=== PATIENT | female | born 1980 | race Caucasian/White ===

== ENCOUNTER 2016-11-23 17:45 | Inpatient (IN) | payer OTHER ==
[~2016-11-23] VITALS: Ht 165.1 cm; Wt 75.1 kg
[2016-11-23 17:47] VITALS: BP 116/83; PULSE 87; RESP 10; O2SAT 100
--- NOTE | 2016-11-23 18:00 | ED.REPORT ---
HPI-Neurologic Deficit Date of Service Nov 23, 2016 ED Provider: Dr. David Pt is a healthy 36 year old female who presents to the ED with concerns for dysarthria and slurred speech that started around 13:40 this afternoon. Pt reports that she hit her head on a cabinet while sitting down, 7 days ago. She was seen by her doctor and diagnosed with a mild concussion. She reports mild headaches and confusion since then. Suddenly today, after she had taken a nap, she found that she was having a difficult time "finding words". She describes this as knowing what she wants to say, but not knowing how to articulate it. Her friend reports that her speech is not currently at her baseline. Pt reports no significant past medical history, no chance of or any other complaints. Nursing Notes Stated Complaint: SLURRED WORDS Chief Complaint: Neuro Symptoms/ Deficits Nursing Notes Reviewed: Yes Allergies: Coded Allergies: No Known Allergies (Unverified , 11/23/16) General Time Seen by Provider: 17:56 Chief Complaint Slurred speech Hx Obtained From: Patient Arrived By: Walk-in Sudden in Onset?: Yes Onset Occurred: 1 - 4 hours ago Symptom Duration: Since onset Progression Since Onset: Unchanged Severity: Current: No pain currently Severity: Maximum: No pain Similar Sx Previous: Yes Risk Factors TPA Administration/Criteria Stroke Thrombolytic Therapy : TPA Considered: Yes Neurologist Contacted: Yes Disc Risk/Benefit/Alternatives: Yes TPA Administered Intravenously: No, exclusion criteria NIH Stroke Scale Level of Consciousness: Alert and responsive (0) Ask Month & Age: Both questions right (0) Open/Close Eyes/Hand Stapler Machine: Performs both tasks (0) Horizontal EO Movements: None (0) Visual Pierce: Partial hemianopsia (1) Facial Palsy: Normal symmetry (0) Right Arm Motor Drift (10s): No drift 10 sec (0) Left Arm Motor Drift (10s): No drift 10 sec (0) Right Leg Motor Drift (5s): No drift 5 sec (0) Left Leg Motor Drift (5s): No drift 5 sec (0) Limb Ataxia FNF/Heel-Jackson: No ataxia (0) Sensation (Arms/Legs/Face): No sensory loss (0) Language Aphasia: No aphasia, normal (0) Dysarthria: Slurring intelligible (1) Extinction/Inattention: No exctinct/inattent (0) NIHSS Score: 2 Time NIHSS Performed: 18:17 Date NIHSS Performed: Nov 23, 2016 Past Medical History Past Medical History None reported Ambulatory Status Independent Review of Systems Constitutional: Denies: Chills, Fever, Malaise, Weakness - generalized Respiratory: Denies: Non-productive cough, Shortness of breath, Wheezing Cardiovascular: Denies: Chest pain GI: Denies: Abdominal pain, Constipation, Diarrhea, Nausea, Vomiting Musculoskeletal: Denies: Extremity pain, Myalgia, Neck pain Neurologic: Reports: Slurred speech, Denies: Abnormal movement, Change LOC, Confusion, Dizziness, Headache, Syncope, Weakness Complete sys rev & neg: except as marked. Physical Exam Initial Vital Signs Vital Signs (First) Date Time Temp Pulse Resp B/P Pulse Ox O2 Delivery O2 Flow Rate FiO2 11/23/16 17:47 36.8 87 10 116/83 100 11/23/16 18:08 Room Air Initial VS: Reviewed ENT: Mucous membranes moist, Conjunctiva normal, No scleral icterus Neck: Supple, Non-tender, Full range of motion Abdomen / GI: Soft, Non-tender, No guarding, No rebound, No distention Skin: Warm, Dry, No cyanosis Psychiatric: Mood/affect normal, Behavior normal, Normal thought content General/Constitutional: Awake, Alert, Well appearing, Well developed, Well nourished, Cooperative Head / Eyes: Atraumatic, Normocephalic, PERRL, EOMI Respiratory / Chest: Atraumatic, Breath sounds NL, Breath sounds = bilat, No respiratory distress Cardiovascular: Heart rate NL, Regular rhythm, Heart sounds NL, No gallop, No murmurs, No rubs Neurologic: Oriented X3, No motor deficits, No sensory deficits, CN II - XII intact Broken speach NIH score 2 - see risk section for details Interpretation & Diagnostics Lab Results Interpretation Result Diagram: 11/23/16 1803 11/23/16 1803 Test 11/23/16 18:03 11/23/16 18:26 11/23/16 19:25 White Blood Count 5.4th/mm3 (3.8-10.1) Red Blood Count 4.94mil/mm3 (3.90-5.20) Hemoglobin 11.8g/dL (12.0-15.6) Hematocrit 37.5% (35.0-46.0) Mean Corpuscular Volume 75.9fL (81-100) Mean Corpuscular Hemoglobin 23.9pg (27.0-35.0) Mean Corpuscular Hemoglobin Concent 31.5% (32.0-37.0) Red Cell Distribution Width 15.5% (12.3-15.4) Platelet Count 292bil/L (150-400) Neutrophils (%) (Auto) 45.8% (40-74) Lymphocytes (%) (Auto) 43.3% (14-46) Monocytes (%) (Auto) 8.7% (4-12) Eosinophils (%) (Auto) 1.8% (0-5) Basophils (%) (Auto) 0.4% (0-3) Sodium Level 143mEq/L (134-144) Potassium Level 3.5mEq/L (3.5-5.2) Chloride Level 106mEq/L (97-108) Carbon Dioxide Level 18mmol/L (18-29) Blood Urea Nitrogen 14mg/dL (6-20) Creatinine 0.77mg/dL (0.57-1.00) Estimat Glomerular Filtration Rate 123mL/min (>59) Glucose Level 100mg/dL (60-99) Calcium Level 9.6mg/dL (8.5-10.1) Total Bilirubin 0.2mg/dL (0.0-1.2) Aspartate Amino Transf (AST/SGOT) 17U/L (0-50) Alanine Aminotransferase (ALT/SGPT) 13U/L (0-32) Alkaline Phosphatase 102U/L (25-150) Troponin T < 0.010ug/L (0.0-0.011) Total Protein 7.1g/dL (6.4-8.4) Albumin 4.5g/dL (3.4-5.0) Human Chorionic Gonadotropin, Qual Negative (Negative) Prothrombin Time 12.0sec (8.1-12.5) Prothromb Time International Ratio 1.12ratio Activated Partial Thromboplast Time 28.5sec (22.8-33.0) Hold Williamson Top Tube Received (Received) Urine Color Yellow (YELLOW) Urine Appearance Clear (CLEAR,HAZY) Urine pH 7.5 (5.0-8.0) Urine Specific [place] 1.010 (1.003-1.035) Urine Protein Negativemg/dL (NEG,TRACE) Urine Glucose (UA) Negativemg/dL (NEGATIVE) Urine Ketones Negativemg/dL (NEGATIVE) Urine Occult Blood Negative (NEGATIVE) Urine Nitrite Negative (NEGATIVE) Urine Bilirubin Negative (NEGATIVE) Urine Urobilinogen Normalmg/dL (NORMAL) Urine Leukocyte Esterase Small (NEGATIVE) Urine RBC 0-2/hpf (0-2) Urine WBC 0-5/hpf (0-5) Urine Epithelial Cells Moderate/hpf (NONE-MOD) Urine Crystals None seen (NONE SEEN) Urine Bacteria Many/hpf (NONE-FEW) Urine Hyaline Casts None/lpf (NONE) Urine Granular Casts None seen (NONE SEEN) Urine Waxy Casts None seen (NONE SEEN) Urine Red Blood Cell Casts None seen (NONE SEEN) Urine White Blood Cell Casts None seen (NONE SEEN) Urine Mucus None seen (None Seen) Urine Trichomonas None seen (NONE SEEN) Urine Yeast None (NONE SEEN) Urinalysis Comment None Urine Culture Reflexed Indicated Lab Results Interpretation: Head and Neck Angio: IMPRESSION: Normal head and neck angiogram. Dictated by: Larissa Kimbrough M.D. on 11/23/2016 at 21:10 ECG Interpretation ECG Interpretation: SR - 63 Time: 19:14 Interpreted by: ED physician Normal ECG Interpretation: Normal axis, Normal intervals CT Head Interpretation IMPRESSION: No acute intracranial abnormality. This study fulfills neurological imaging criteria for inclusion or exclusion of acute stroke therapies based on available published neurological imaging guidelines. Dictated by: Larissa Kimbrough M.D. on 11/23/2016 at 18:10 Interpretation / Wet Read by: Interpret - Radiologist Re-Eval/Medical Decision Med Decision/Clinical Course 36-year-old female with acute onset of dysarthria today approximately 4 hours prior to arrival. The time imaging is completed, the patient is outside of the extended window for TPA administration. She has a low stroke scale however dysarthria is concerning. She she has not abnormality with extraocular movements which has been present for about 7 days. She reports a recent concussion immediately prior to that however her mechanism is not impressive. She does have a headache today however it is not explosive in nature and is not severe and she did not have oral or documented history of migraines. Imaging for stroke including CT brain without contrast as well as CT angiogram of head and neck are unremarkable. Her dysarthria has improved but not resolved. This may represent an acute stroke, other mechanisms including complex migraine and demyelinating assess such as multiple sclerosis are considered. She has no motor deficit and I do not believe that this is Guillain-Harvey or myasthenia. She will be admitted to the hospitalist service with neurology consult in and will need an MR in the morning. Was given aspirin in the emergency department. Source of Hx: Old records Re-Evaluation/Progress #1: Time of Eval: 18:17 Re-Evaluation/Progress Note: Pt is rechecked. She remains stable. Risk factors for TPA are addressed. Re-Evaluation/Progress #2: Time of Eval: 18:38 Re-Evaluation/Progress Note: Pt is reported of the consultation with the Stroke neurologist and the plan to obtain additional imaging at this time. She understands and agrees, all questions are addressed. Re-Evaluation/Progress #3: Time of Eval: 20:15 Re-Evaluation/Progress Note: Pt is rechecked and informed of the plan to admit her to the hospital at this time. She understands and agrees, all questions are addressed. Consultation #1: Call Returned at: 18:36 Note: Spoke with Stroke Neurologist who suggests against TPA administration. Consultation #2: Referral / Consult Name: Felix Roy MD Consulted With: Neurology Call Returned at: 20:22 Note Teller: Will see patient, Agrees with eval, Agrees with plan Note: Agrees to consult Consultation #3: Referral / Consult Name: Patricia Engel DO Call Returned at: 21:43 Note Teller: Will see patient, Agrees with plan, Accepts admit Counseled Regarding: Diagnosis, Lab results, Need for admission Discharge & Departure Impression: Primary Impression: Stroke CVA mechanism: unspecified Qualified Code: I63.9 - Cerebral infarction, unspecified Disposition: ADMITTED TO HOSPITAL Discharge Condition All VS Reviewed: Yes Condition: Stable Crit Care Except Billable Proc Time Spent: 75-104 minutes Services Performed: Patient management by me, Time spent at bedside, Reviewing test results, Reviewing imaging, Discussing patient care, Documentation in record, Time with fam/surrogate Scribe Attestation Portions of this note were transcribed by Chinyere Lamas. I, Dr. David personally performed the history, physical exam and medical decision-making; I reviewed and confirmed the accuracy of the information in the transcribed note. Signed by: Janes Mclean, 11/23/2016 21:48 Ambrocio David MD Nov 23, 2016 18:00 SHAD LAMAS Nov 23, 2016 18:05
[2016-11-23 18:06] LABS: BASOPHILS % (AUTO) 0.4 % (0-3); EOSINOPHILS % (AUTO) 1.8 % (0-5); MONOCYTES % (AUTO) 8.7 % (4-12); Mean Corpuscular Hemoglobin 23.9 pg (27.0-35.0); Mean Corpuscular Volume 75.9 fL (81-100); NEUTROPHILS % (AUTO) 45.8 % (40-74); Platelet Count 292 bil/L (150-400)
[2016-11-23 18:08] VITALS: BP 96/55; PULSE 61; RESP 17; O2SAT 100
--- NOTE | 2016-11-23 18:13 | DRSVH ---
PROCEDURE: CT BRAIN (TPA) ([id number]) INDICATIONS: SLURRED SPEECH TECHNIQUE: Noncontrast 4.5 mm thick angled axial sections acquired from the foramen magnum to the vertex, with c oronal reformats. COMPARISON: None. FINDINGS: Image quality: Excellent. CSF spaces: Basal cisterns are patent. No extra-axial fluid collections. Ventricles are normal in size and shape. Brain: No midline shift. No intracranial masses or hemorrhage. Plata-white matter interface is norm al. Skull and face: Calvarium and visualized facial bones are intact, without suspicious lesions. Sinuses: Visualized sinuses and mastoids are clear. IMPRESSION: No acute intracranial abnormality. This study fulfills neurological imaging criteria for inclusion or exclusion of acute stroke therapie s based on available published neurological imaging guidelines. Dictated by: Larissa Kimbrough M.D. on 11/23/2016 at 18:10 Approved by: Larissa Kimbrough M.D. on 11/23/2016 at 18:12
[2016-11-23 18:33] LABS: TROPONIN T < 0.010 ug/L (0.0-0.011)
[2016-11-23] MEDS ORDERED: Acetaminophen IV 1,000 MG in IV Premix 1 EACH IV ONE (18:45)
[2016-11-23 18:54] LABS: INR 1.12 ratio
[2016-11-23 20:02] LABS: APPEARANCE,URINE CLEAR (CLEAR,HAZY); COLOR,URINE YELLOW (YELLOW); OCCULT BLOOD,URINE NEGATIVE (NEGATIVE); PH,URINE 7.5 (5.0-8.0); UROBILINOGEN,URINE NORMAL (NORMAL)
--- NOTE | 2016-11-23 21:16 | DRSVH ---
PROCEDURE: CT ANGIO HEAD AND NECK (P) INDICATIONS: dysarthria TECHNIQUE: Pre-contrast 4.5 mm thick sections acquired from the foramen magnum to the vertex. After the adminis tration of intravenous contrast, 1 mm thick sections acquired from the aortic arch through the [place] of [place]. Post-contrast 4.5 mm thick sections then re-acquired from the foramen magnum to the vert ex. 3-dimensional gtctsyh-nygivkhzb-jfxgsuhadn (MIP) and/or volume rendering reformats were acquired of the central intracranial vasculature and neck separately. For radiation dose reduction, the foll owing was used: automated exposure control, adjustment of mA and/or kV according to patient size. COMPARISON: [facility], CT, BRAIN ([facility]), 11/23/2016, 18:05. FINDINGS: Image quality: Excellent. BRAIN: CSF spaces: Ventricles are normal in size and shape. Basal cisterns are patent. No extra-axial flu id collections. Brain: No midline shift. No intracranial bleeds or masses. Plata-white matter interface appears int act. Skull and face: Calvarium and facial bones appear intact, without suspicious lesions. Orbits appear normal. Sinuses: Sinuses and mastoids are clear. HEAD CT ANGIOGRAPHY: Anterior circulation: Intracranial internal carotid arteries are normal in size and flow. The flow within the paired anterior cerebral arteries is normal and symmetric. The flow within the middle cer ebral arteries is normal and symmetric. The anterior communicating artery is seen. No aneurysms are seen. Posterior circulation: Visualized portions of the vertebral arteries demonstrate normal caliber, and join to form a normal appearing basilar artery. Flow within the posterior cerebral arteries is norm al and symmetric. No aneurysms are seen. NECK CT ANGIOGRAPHY: Carotid system: The great vessels demonstrate a conventional anatomy as they arise from the aortic a rch. The origins of the common carotid arteries appear patent. The common carotid arteries demonstr ate normal caliber and courses. The bifurcation regions are both widely patent. The internal caroti d arteries demonstrate normal calibers and courses. Posterior circulation: The origins of the vertebral arteries both appear widely patent. The more arita perior extracranial portions of both vertebral arteries also demonstrate normal courses and calibers. They join to form a normal appearing basilar artery. Soft tissues: Visualized neck soft tissues demonstrate no suspicious abnormalities. Bones: No suspicious bony lesions. Visualized cervical spine appears normally aligned. IMPRESSION: Normal head and neck angiogram. Dictated by: Larissa Kimbrough M.D. on 11/23/2016 at 21:10 Approved by: Larissa Kimbrough M.D. on 11/23/2016 at 21:14
[2016-11-23] MEDS ORDERED: Polyethylene Glycol (PEG) 17 Gm Powder PO PRN (21:50)
[2016-11-23] MEDS ORDERED: Alum-Mag Hydrox-Simeth 30 mL Suspension PO PRN (21:50)
[2016-11-23] MEDS ORDERED: Ondansetron 2 mg/mL 2 mL Inj IV PRN (21:50)
[2016-11-23 22:42] VITALS: BP 108/68; PULSE 62; RESP 16; O2SAT 100
[2016-11-23 23:00] VITALS: PULSE 60
[2016-11-24] VITALS (8 sets, daily range): BP systolic 90–110; BP diastolic 58–67; PULSE 65–78; RESP 16–18; O2SAT 99–100
--- NOTE | 2016-11-24 00:46 | PCM.HPMED ---
Subjective Date of Service Nov 23, 2016 Primary Provider: Admitting Physician: Patricia Engel DO Primary Care Physician: Patricia Adler Attending Physician: Patricia Engel DO Admit Status: From the Emergency Department, Full Admit Chief Complaint: Slurred speech. . History of Present Illness: Nydia Mcconnell is a 36-year-old female who presents to [facility] Emergency Department with concerns slurred speech that started around 13:40 this afternoon. She reports that she hit her head approximately 7 days ago on a bathroom cabinet while going to the bathroom. She was then diagnosed with mild concussion at her PCPs office. Since she hit her head she has had persistent left-sided headache, starting in the frontal region and radiating in a Danay horn distribution. She reports mild headaches approximately 6-8 times a day. She has no history of chronic headaches. She reports that she had had as a child but did not have concussive-like symptoms. She also endorses confusion , memory loss, and issues with recalling information. She occasionally has right-sided headaches as well. She reports that today she awoke with a headache and dizziness. She did some computer work, watched TV, and showered then decided to take a nap as her headache and dizziness was unremitting. She reports that when she awoke she suddenly had issues with speaking. She reports her words were slurred and she was having difficulty with word finding. She describes this as knowing what she wants to say but not knowing how to articulate it. Per the ED physician's report, her friend reports that her speech is not currently at her baseline. She denies diplopia or blurred vision , nasal congestion, sore throat, chest pain, shortness of breath, vomiting, fever, chills, dysuria, diarrhea, constipation, or weakness. However, she does report that she has to concentrate to walk at times. Vital signs in the ER: Temperature 36.8. Pulse 87. Respiratory rate 17. Blood pressure 116/83. Pulse ox 100% on room air. She was given aspirin 81 mg and acetaminophen 1 g IV 1. PCP is Patricia MAURER . Review of Systems: A comprehensive review of systems was conducted with the patient and found to be negative except as above in the History of Present Illness. . Allergies Coded Allergies: No Known Allergies (Unverified , 11/23/16) Home Medications Digestion oil? . PMH 1. Anxiety. 2. Carpal tunnel. 3. GERD. . Surgical History 1. Left carpal tunnel release 2. 2. Left ulnar nerve transposition. 3. D&C. 4. . 5. Colposcopy. . Family History Father who from drunk driving/MVA. Mother who is an alcoholic and has had a seizure in the past for which she believes was related to alcohol use. Three brothers, 2 of which are healthy and the oldest with prostate cancer which metastasized to the lung and is in remission after lobectomy. . 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 She recently moved to [place] from [place]. . Exam Vital Signs Vital Sign - Last Date Time Temp Pulse Resp B/P Pulse Ox O2 Delivery O2 Flow Rate FiO2 11/23/16 18:08 61 17 96/55 100 Room Air 11/23/16 17:47 36.8 Exam General: Young female sitting in bed and in no acute distress, well-developed, well-nourished, appropriately interactive. HEENT: Normocephalic, atraumatic. External ears without defect. Pupils equal, round, and reactive to light. Anicteric sclerae, moist conjunctivae, and no lid lag. Oropharynx free of erythema and cobble stoning with moist mucosa. Neck: Supple with full range of motion. No jugular venous distension. No bruits. No lymphadenopathy or thyromegaly. Cardiovascular: Regular rate and rhythm without murmurs, rubs, or gallops. Pulmonary: Clear to auscultation bilaterally with no crackles, wheezes, or rhonchi. Normal respiratory effort with no use of accessory muscles. Abdomen: Soft, nontender, nondistended, bowel sounds present. No hepatosplenomegaly or masses appreciated. Extremities: No clubbing, cyanosis, or edema. No erythema, warmth, or palpable cord of the lower extremities. Skin: Normal temperature, turgor, and texture; no rash, ulcers, or subcutaneous nodules appreciated. Neurological: Partial hemianopsia on left. NIH scale 2. Possible disconjugate gaze with vergence? Otherwise CN II-XII intact. Sensation intact. Motor function intact. Normal muscle strength, tone, and bulk. Reflexes, coordination, and sensory function within normal limits. No gait impairment. Psychiatric: Normal mood and affect. Alert and oriented to person, place, and time. . Lab and Diagnostics Labs Item Value Date Time Urine Color Yellow 11/23/161924 Urine Appearance Clear 11/23/161924 Urine pH 7.5 11/23/161924 Urine Specific [place] 1.010 11/23/161924 Urine Protein Negative mg/dL 11/23/161924 Urine Glucose (UA) Negative mg/dL 11/23/161924 Urine Ketones Negative mg/dL 11/23/161924 Urine Occult Blood Negative 11/23/161924 Urine Nitrite Negative 11/23/161924 Urine Bilirubin Negative 11/23/161924 Urine Urobilinogen Normal mg/dL 11/23/161924 Urine Leukocyte Esterase Small 11/23/161924 Urine RBC 0-2 /hpf 11/23/161924 Urine WBC 0-5 /hpf 11/23/161924 Urine Epithelial Cells Moderate /hpf 11/23/161924 Urine Crystals None seen 11/23/161924 Urine Bacteria Many /hpf 11/23/161924 Urine Hyaline Casts None /lpf 11/23/161924 Urine Granular Casts None seen 11/23/161924 Urine Waxy Casts None seen 11/23/161924 Urine Red Blood Cell Casts None seen 11/23/161924 Urine White Blood Cell Casts None seen 11/23/161924 Urine Mucus None seen 11/23/161924 Urine Trichomonas None seen 11/23/161924 Urine Yeast None 11/23/161924 Urinalysis Comment None 11/23/161924 Urine Culture Reflexed Indicated 11/23/161924 Item Value Date Time Calcium Level 9.6 mg/dL 11/23/161802 Total Bilirubin 0.2 mg/dL 11/23/161802 Aspartate Amino Transf (AST/SGOT) 17 U/L 11/23/161802 Alanine Aminotransferase (ALT/SGPT) 13 U/L 11/23/16 180 Alkaline Phosphatase 102 U/L 11/23/161802 Troponin T < 0.010 ug/L 11/23/161802 Total Protein 7.1 g/dL 11/23/161802 Albumin 4.5 g/dL 11/23/161802 Result Diagram: 11/23/16 18011/23/161802 Microbiology Urine culture pending. . X-Rays, CTs and MRIs CT BRAIN (TPA) IMPRESSION: No acute intracranial abnormality. This study fulfills neurological imaging criteria for inclusion or exclusion of acute stroke therapies based on available published neurological imaging guidelines. Dictated by: Larissa Kimbrough M.D. on 11/23/2016 at 18:10 Approved by: Larissa Kimbrough M.D. on 11/23/2016 at 18:12 CT ANGIO HEAD AND NECK (P) IMPRESSION: Normal head and neck angiogram. Dictated by: Larissa Kimbrough M.D. on 11/23/2016 at 21:10 Approved by: Larissa Kimbrough M.D. on 11/23/2016 at 21:14 . 12-lead ECG EKG: Sinus rhythm, heart rate 63, normal axis, normal intervals, normal R-wave progression, no pathological Q waves or acute ischemic changes such as ST elevation or depression. . Assessment & Plan Nydia Mcconnell is a 36-year-old female who presents to [facility] Emergency Department with concerns slurred speech that started around 13:40 this afternoon. 1. Slurred speech with difficulty word finding, present on admission. Active. - The patient presents after enduring a mild concussion 7 days ago now with abrupt onset slurred speech (improving), trouble with word finding, and intermittent mild left-sided frontal headache. - Differential diagnosis includes: Postconcussive syndrome versus TIA versus complex migraine versus less likely substance intoxication. - NIHSS score of 2 based on left partial hemianopsia and slurred speech. - CT brain without contrast and CTA of the neck revealed no intracranial abnormalities and normal head and neck angiogram, as above. - Ordered echocardiogram with bubble study. - Ordered MRI stroke protocol for tomorrow morning. Note dental implant with possible metal - Urinalysis is likely contaminant as there are moderate amount of epithelial cells. Urine culture pending. - Patient received aspirin 81 mg. Continue aspirin 81 mg daily. - Started atorvastatin 40 mg daily at bedtime. - Ordered fasting lipid panel and hemoglobin A1c with morning labs. - Ordered blood alcohol level and urine drug screen, pending. - Continue to monitor vital signs and cardiac function on telemetry. - Continue neuro checks per stroke protocol. - Physical therapy, speech therapy and occupational therapy evaluations ordered. - Neurology, Dr. Roy, has been consulted and plans to see the patient tomorrow morning. 2. Mild microcytic anemia, unknown chronicity, present on admission. - Ordered iron panel, B12, and folate with morning labs. Chronic problems: GERD, chronic. - Ordered famotidine 20 mg twice a day. PRN antiemetics: Zofran and Maalox. PRN bowel regimen: Senna and MiraLAX. PRN analgesics: Tylenol Patient is admitted under inpatient status with expected length of stay greater than 2 midnights due to severity of presenting symptoms, risk of adverse event, and complexity of treatment plan. VTE Prophylaxis: Sub-Q Heparin (Unfractionated) Resuscitation Status: CPR: Attempt Resuscitation Attending Statement The patient was seen and examined together with house staff on 11/23/2016 and I agree with the history, exam and plan as outlined in the note above. Tonya Mckoy DO Nov 23, 2016 22:49 Patricia Engel DO Nov 24, 2016 03:41
--- NOTE | 2016-11-24 03:23 | NUR ---
Admission Pt arrived to room 3027 alert and oriented x3, no significant complaints of pain, just minor head ache. Pt was oriented to room, call light, bed and policies. Pt has no significant neurological deficits notable at this time. Minor nystagmus when eyes accommodate to close objects and Pts speech is back to normal per Pt.
[2016-11-24 07:27] LABS: BASOPHILS % (AUTO) 0.4 % (0-3); EOSINOPHILS % (AUTO) 1.8 % (0-5); MONOCYTES % (AUTO) 7.8 % (4-12); Mean Corpuscular Hemoglobin 23.8 pg (27.0-35.0); Mean Corpuscular Volume 76.7 fL (81-100); NEUTROPHILS % (AUTO) 55.1 % (40-74); Platelet Count 252 bil/L (150-400)
[2016-11-24 07:42] LABS: Unsaturated Iron Binding 361.9 ug/dL
[2016-11-24] MEDS ORDERED: LORA10CA PO (09:24)
[2016-11-24] MEDS ORDERED: doterra (09:24)
[2016-11-24] MEDS ORDERED: OMEP10CA4 PO (09:24)
--- NOTE | 2016-11-24 09:35 | NUR ---
Evaluation completed. Please go to "Notes" then click on "Assessments and Notes" (bottom left corner of screen). Then select appropriate discipline tab on top of screen.
[2016-11-24] MEDS: Heparin 5,000 Unit/mL Inj SUBQ SCH ×2 (09:43→18:21)
--- NOTE | 2016-11-24 11:26 | NUR ---
Social Work-screening: Data:EMR reviewed. Pt is on day 1 of hospitalization for Acute CVA per H&P. Pt's insurance is [employer] and PCP is Patricia Adler MD. EMR Reviewed. Pt resides at home with her and family where she remains independent with ADLS. PT has cleared pt for home no needs, pt ambulated 500ft. Pt to have neurology consult. Pt's family to provide transport home. No anticipated discharge needs. SW will continue to follow if needs arise. Assessment:pt who is independent at baseline. Plan:Pt to discharge home when medically stable via POV. No anticipated discharge needs. SW will continue to follow if needs arise. WEI Lee
[2016-11-24] MEDS ORDERED: Benzocaine-Menthol Lozenge 2/Pkg PO PRN (12:30)
--- NOTE | 2016-11-24 14:51 | NUR ---
Neuro Patient has some mild word finding difficulties during morning and some mild slurring. C/O slight dizziness and associated nausea at times that comes and goes. PERLAA, outboard motor tester strength symmetrical, no tongue deviation, slight nystagmus noted. Bedside swallow eval completed and patient passed, but patient has signed a diet against advice waiver do general diet has been ordered in computer. Patient handles general diet and thin liquids with no signs aspiration and no apparent difficulty. Bed low and locked, call light in reach, bed alarm on frequent rounding in place for safety.
--- NOTE | 2016-11-24 15:52 | DRSVH ---
[facility] [address] [place] [address] Echocardiogram Report Name: SHANNA RIBEIRO CStudy Date : 11/24/2016 Height: 65 in Hospital Exam Location: [facility] Weight: 166 lb Gender: Female BSA: 1.8 m2 : 1980 Age: 36 yrs BP: 93/58 mmHg Reason For Study: CVA Ordering Physician: HOSPITALIST LENIerformed By: Wilma Rodgers Referring Physician: LIBERTAD Stewart Interpretation Summary The left ventricle is normal in size, wall thickness, and systolic function without any focal wall motion abnormalities. The ejection fraction is estimated to be 55-60%. There is no LV thrombus. The right ventricle is normal in size and function. The interatrial septum is intact with no evidence for an atrial septal defect. Injection of contrast documented no interatrial shunt. No significant valvular pathology seen. Procedure: A two-dimensional transthoracic echocardiogram with color flow and Doppler was performed. The study quality was technically good. There is no prior echocardiogram noted for this patient. A saline contrast injection was performed to assess for cardiac shunting. The patient was in normal sinus rhythm during the exam. Left Ventricle: The left ventricle is normal in size, wall thickness, and systolic function without any focal wall motion abnormalities. There is no thrombus. The ejection fraction is estimated to be 55-60%. There are no focal wall motion abnormalities. Assessment of diastolic parameters indicates normal left ventricular diastolic function and normal filling pressures. Right Ventricle: The right ventricle is normal in size and function. Atria: Both atria are normal in size. The interatrial septum is intact with no evidence for an atrial septal defect. There is no Doppler evidence for an interatrial shunt. Injection of contrast documented no interatrial shunt. Mitral Valve: The mitral valve leaflets appear borderline thickened, but open well. There is trace mitral regurgitation. Aortic Valve: The aortic valve is trileaflet. The aortic valve opens well. There is no aortic valve stenosis. No aortic regurgitation is present. Tricuspid Valve: The tricuspid valve is normal in structure and function. The right ventricular systolic pressure is estimated at 25 mmHg assuming a right atrial pressure of 3 mm Hg. There is trace tricuspid regurgitation. Pulmonic Valve: The pulmonic valve is not well seen, but is grossly normal. There is no pulmonic valvular regurgitation. Great Vessels: The aortic root is normal size. The ascending aorta is at the upper limits of normal in size. The aortic arch is normal in size. The IVC is of normal diameter and collapses greater than 50% with a sniff. This suggests a low right atrial pressure of 3 mm Hg. Pericardium/ Pleura There is no pericardial effusion. There is no pleural effusion. MMode/2D Measurements & Calculations LVIDd: 4.1 cm RA long axis LVOT diam: 2.0 cm LVIDs: 2.8 cm LA A2 area: 15.7 cm Ao root diam FS: 30.2 % LA A4 area: 18.7 cm RA area EPSS: 0.21 cm LA length (vol) asc Aorta Diam IVSd: 0.71 cm : 12.7 cm LVPWd: 0.79 cm LA vol: 51.5 ml RA vol Ao Arch Diam (Prox LA vol index : 27.5 ml Trans): 2.7 cm RA : 15.0 mm2 IVC diam: 1.5 cm LV zuniga. diameter/BSA LV sys. diameter/BSA RVD1 (basal) (cm/m^2): 2.2 (cm/m^2): 1.6 Doppler Measurements & Calculations Ao V2 max MV E max layton MV E/A: 1.3 TR max layton : 138.6 cm/sec : 62.9 cm/sec Med Peak E' Layton : 234.0 cm/sec Ao max PG MV A max layton TR max PG : 7.7 mmHg : 49.2 cm/sec E/E' med: 5.2 : 21.9 mmHg Ao mean PG MV P1/2t: 104.2 msec Pulm A Revs Dur PA V2 max : 93.2 cm/sec LVOT Max Layton MV A dur: 0.10 sec PA mean PG : 119.0 cm/sec PA Accel Time CELESTE(I,D): 2.5 cm : 0.21 sec sev ratio MV dec time MV P1/2t max layton Ao V2 mean LV V1 max PG : 0.36 sec : 101.3 cm/sec MVA(P1/2t): 2.1 cm2 Ao V2 VTI: 30.9 cm LV V1 VTI CELESTE(V,D): 2.7 cm2 : 24.7 cm PA V2 mean CELESTE indexed to BSA Pulm A Revs Dur - MV A : 56.4 cm/sec (cm^2/m^2): 1.4 Dur: -0.02 msec Reading Physician:PM
--- NOTE | 2016-11-24 16:42 | PCM.PNMED ---
Subjective Date of Service Nov 24, 2016 Subjective Patient was examined at bedside today. Patient denies any chest pain, shortness of breath, nausea, vomiting, diarrhea. Patient currently complains only of dizziness. Exam Vital Signs Vital Sign - Last Date Time Temp Pulse Resp B/P Pulse Ox O2 Delivery O2 Flow Rate FiO2 11/24/16 14:24 36.3 67 18 90/60 100 Room Air Intake and Output 11/23/16 11/23/16 11/24/16 Cumulative From/Thru 15:00 23:00 07:00 11/23/16 17:47 - 11/24/16 06:41 Intake Total 200 ml 200 ml Output Total 300 ml 300 ml Balance -100 ml -100 ml Intake Oral 200 ml 200 ml Output Urine Total 300 ml 300 ml Exam Physical Exam: GEN: Patient was awake, alert, responding appropriately to questions HEENT: PERRLA, Neck soft supple, trachea midline, nomocephalic/atraumatic, eyes were not able to track during extraocular eye muscle exam. Patient had blurry vision and was unable to tell me the appropriate number of fingers and toes holding up in the left lower lateral position. Upon exam the patient's eyes could track to the left and right but once they started moving in the H pattern the eyes immediately crossed or rolled posteriorly. CV: +S1/S2, RRR, no murmurs auscultated Respiratory: CTAB, no wheezes, rales, rhonchi GI: +bowel sounds x4, soft, compressible, non TTP EXT: no c/c/e Neuro: CN II-XII grossly intact Psych: mood and affect were appropriate IVs and Medications Medications Reviewed: Medications were reviewed in detail Medications Current Medications Aspirin 324 mg DAILY PO Last administered on 11/24/16t 09:43; Admin Dose 324 MG ; Start 11/24/16 at 08:30 Atorvastatin Calcium 40 mg HS PO; Start 11/24/16 at 21:00 Al Hydrox/Mg Hydrox/Simethicone 30 ml Q6H PRN PO; Start 11/23/16 at 21:50 Ondansetron HCl 4 to 8 mg Q4H PRN IV; Start 11/23/16 at 21:50 Senna 17.2 mg BID PRN PO; Start 11/23/16 at 21:50 Polyethylene Glycol 17 gm DAILY PRN PO; Start 11/23/16 at 21:50 Famotidine 20 mg BID PO Last administered on 11/24/16 09:43; Admin Dose 20 MG; Start 11/24/16 at 08:30 Heparin Sodium (Porcine) 5,000 unit Q8 SUBQ Last administered on 11/24/16 09:43 ; Admin Dose 5,000 UNIT; Start 11/24/16 at 08:30 Benzocaine/Menthol 1 lozenge Q2H PRN PO Last administered on 11/24/16 12:54; Admin Dose 1 LOZENGE; Start 11/24/16 at 12:30 Lab and Diagnostics Result Diagram: 11/24/16 0655 11/24/16 0655 Microbiology Urine culture pending. . X-Rays, CTs and MRIs CT BRAIN (TPA) IMPRESSION: No acute intracranial abnormality. This study fulfills neurological imaging criteria for inclusion or exclusion of acute stroke therapies based on available published neurological imaging guidelines. Dictated by: Larissa Kimbrough M.D. on 11/23/2016 at 18:10 Approved by: Larissa Kimbrough M.D. on 11/23/2016 at 18:12 CT ANGIO HEAD AND NECK (P) IMPRESSION: Normal head and neck angiogram. Dictated by: Larissa Kimbrough M.D. on 11/23/2016 at 21:10 Approved by: Larissa Kimbrough M.D. on 11/23/2016 at 21:14 . 12-lead ECG EKG: Sinus rhythm, heart rate 63, normal axis, normal intervals, normal R-wave progression, no pathological Q waves or acute ischemic changes such as ST elevation or depression. . Assessment & Plan Nydia Mcconnell is a 36-year-old female who presents to [facility] Emergency Department with concerns slurred speech that started around 13:40 this afternoon. Slurred speech with difficulty word finding, present on admission. Active. - The patient presents after enduring a mild concussion 7 days ago now with abrupt onset slurred speech (improving), trouble with word finding, and intermittent mild left-sided frontal headache. - Differential diagnosis includes: Postconcussive syndrome versus TIA versus complex migraine versus multiple sclerosis less likely substance intoxication. - CT brain without contrast and CTA of the neck revealed no intracranial abnormalities and normal head and neck angiogram, as above. - MRI today ordered by neuro at this time questionable if an MRI is even possible as the patient does have a metal dental implant - Urinalysis is likely contaminant as there are moderate amount of epithelial cells. Urine culture pending. - Patient received aspirin 81 mg. Continue aspirin 81 mg daily. - Started atorvastatin 40 mg daily at bedtime. - Fasting lipid panel currently within normal range and hemoglobin A1c pending -Tox screen negative - Continue neuro checks per stroke protocol. - Physical therapy, speech therapy and occupational therapy evaluations ordered. - Neurology, Dr. Zamora, has been consulted and would appreciate input and recommendations Mild microcytic anemia, unknown chronicity, present on admission. - Hemoglobin was mildly low at 11.1 - % and iron saturations were low but all other iron panels were within normal limits - Folate and B12 pending Chronic problems: GERD, chronic. - Ordered famotidine 20 mg twice a day. PRN antiemetics: Zofran and Maalox. PRN bowel regimen: Senna and MiraLAX. PRN analgesics: Tylenol Disposition: Patient's lower extremity has currently resolved beta-hCG is negative. Patient is no longer slurring her speech however she is still dizzy and her extraocular eye muscles are not currently tracking appropriately. Dr. zamora requested that the patient have a CT scan with and without contrast of the brain to look for any signs of stroke or brain stem abnormalities. In the morning we will discuss more with MRI to see if the patient is able to have an MRI of the brain even though she has a metal implant in her mouth. Patient is currently stable and seems to be improving clinically. VTE Prophylaxis: Sub-Q Heparin (Unfractionated) VTE Mechanical Devices: Intermittant Pneumatic CD Resuscitation Status: CPR: Attempt Resuscitation Trinidad Goff DO Nov 24, 2016 16:42
--- NOTE | 2016-11-24 17:31 | DRSVH ---
PROCEDURE: CT BRAIN WITH AND WITHOUT CONTRAST ([id number]) INDICATIONS: Dizziness TECHNIQUE: 4.5 mm thick angled axial sections acquired from the foramen magnum to the vertex before and after th e administration of intravenous contrast, with coronal reformats. COMPARISON: None. FINDINGS: Image quality: Excellent. CSF Spaces: Basal cisterns are patent. No extra-axial fluid collections. Ventricles are normal in size and shape. Brain: No midline shift. No intracranial bleeds or masses. Right frontal lobe venous angioma. No a bnormal intracranial enhancement. Plata-white interface appears normal. Skull and face: Calvarium and visualized facial bones appear intact, without suspicious lesions. Sinuses: Visualized sinuses and mastoids are clear. IMPRESSION: No acute process. No explanation for dizziness. Dictated by: Lina Ayala M.D. on 11/24/2016 at 17:28 Approved by: Lina Ayala M.D. on 11/24/2016 at 17:29
[2016-11-25] MEDS: Heparin 5,000 Unit/mL Inj SUBQ SCH ×2 (00:25→09:22)
[2016-11-25 02:00] VITALS: BP 91/58; PULSE 61; RESP 16; O2SAT 98
[2016-11-25 05:30] VITALS: BP 95/60; PULSE 62; RESP 16; O2SAT 98
--- NOTE | 2016-11-25 08:30 | CONS ---
[address] [address] CONSULTATION REPORT PATIENT: SHANNA RIBEIRO : 1980 MR#: [id number] ADMIT: 11/23/2016 JOB ID: [id number] DATE OF SERVICE: 11/24/2016 REQUESTING PROVIDER: Ambrocio David MD HISTORY OF PRESENTING ILLNESS: The patient is a very pleasant, 36-year-old, right-handed woman, with no significant past medical history, who reports that she accidentally hit the left side of her head on a cabinet. However, did not lose consciousness. She reports that after this she noted some swelling over the left frontal head region which resolved by the next morning. Then when she awoke the next morning, she noted that she felt vertiginous. She has also noted intermittent word-finding difficulty and confusion, and went to see her primary care physician, who diagnosed her with a mild concussion. She reports that this occurred over a week ago. She reports that then she attempted to return to her normal activities of daily living. However, noted that this further aggravated her symptoms, including the development of migraine headaches characterized as throbbing and, at times, sharp headaches that initially started on the left side behind her left eye and now has spread to the right side behind her right eye, and are associated with photophobia and phonophobia, and interfere with her activities of daily living. She has also noted a mild intermittent degree of nausea associated with these headaches. She reports that the vertigo has significantly improved. She still notes that she has intermittent short-term memory impairment and confusion. She has noted that her speech was dysarthric. On examination, she was noted to have a dysconjugate gaze. She reports no history of traumatic brain injury, stroke or seizures. She reports no history of migraine headaches. She was seen in the emergency department and found to have an NIH stroke scale of 2 for partial hemianopsia, and 1 for slurred speech. She reports that she still feels that her speech is slurred. She has not noted any other new neurologic symptoms. She reports that ever since the day she hit her head, she has had daily headaches. She reports no aura. She may benefit from a low-dose of topiramate to decrease the frequency of her migraine headaches without aura. She reports no history of nephrolithiasis or glaucoma. Reviewed side effects of Topamax in detail. We discussed headache hygiene in detail. We discussed the diagnosis of concussion in detail. We discussed the importance of brain rest. We discussed the differential diagnosis for her symptoms. We discussed the diagnosis of concussion. PAST MEDICAL HISTORY: She reports a past medical history of carpal tunnel syndrome PAST SURGICAL HISTORY: No past surgical history. ALLERGIES: No Known Drug Allergies MEDICATIONS: None SOCIAL HISTORY: Lives with her family. No tobacco, alcohol, or drugs. FAMILY HISTORY: No neurologic disorders. IMAGING STUDIES: CT head performed on [address] angiogram and neck performed on November 23, 2016 was unremarkable. REVIEW OF SYSTEMS: A complete review of systems was performed and was remarkable for above-noted. She reports no fevers, chills, nausea, vomiting other than the nausea associated with her new onset headaches as well as no neck pain. PHYSICAL EXAMINATION: Temperature 36.3, pulse is 67, respiratory rate of 18, blood pressure 90/60, pulse oximetry 100% on room air. General: She is a well-developed, well-nourished woman, in no acute distress. Head: Normocephalic, atraumatic. Neck: Supple. No carotid bruits were auscultated. Negative Kernig. Negative Brudzinski. Chest: Clear to auscultation. Heart: Regular rate and rhythm. Abdomen: Soft, nondistended, nontender. Extremities: No cyanosis, clubbing, or edema. NEUROLOGIC EXAMINATION: Mental status: She is awake, alert, oriented x3. Speech is mildly dysarthric. However, no aphasia was noted. Cranial nerves: Pupils equal, round, reactive to light. Extraocular movements were noted to be dysconjugate. Most pronounced was initial difficulty with left eye abduction. Visual liao were full to confrontation. Face appeared symmetrical. Facial sensation was intact to light touch and temperature. Auditory sensation was intact to finger rub. Palatal elevation was symmetrical. Tongue was midline. Sternocleidomastoid and trapezii are 5/5 bilaterally. Motor: Normal tone and bulk. Muscle strength 5/5 bilaterally. Sensation intact to light touch and temperature. Deep tendon reflexes were symmetrical. Plantars were flexor bilaterally. Coordination: [id number] was intact bilaterally with no evidence of dysmetria. Gait was normal, narrow based, somewhat hesitant gait with a negative Romberg. IMPRESSION: Given the constellation of symptoms that she has had and the negative workup so far, my suspicion is that she did have a concussion. Following a concussion, we do recommend brain rest. I do recommend attempting to perform a magnetic resonance imaging study of her brain if at all possible. As noted above, she may benefit from a trial of low-dose topiramate 25 mg at bedtime for 1 week then 50 mg at bedtime thereafter. She may also benefit from seeing an eye doctor as an outpatient. Thank you, again, Dr. David, for allowing me to participate in the care of your patient. Please feel free to contact me with any questions or concerns. SAI
--- NOTE | 2016-11-25 09:27 | NUR ---
Transferred to MRI Patient transferred to MRI at 0927.
[2016-11-25 09:32] LABS: Mean Corpuscular Hemoglobin 23.6 pg (27.0-35.0); Mean Corpuscular Volume 77.5 fL (81-100)
--- NOTE | 2016-11-25 10:41 | DRSVH ---
PROCEDURE: MRI BRAIN WITH AND WITHOUT CONTRAST ([id number]) INDICATIONS: 36 year old woman with dizziness. History of recent concussion. TECHNIQUE: Noncontrast axial T1 spin echo, axial T2 fast spin echo, sagittal and axial FLAIR, coronal T2 fast sp in echo, axial gradient echo, axial diffusion and ADC through the brain. After the administration of contrast, axial and coronal 3D VIBE or T1 spin echo with fat saturation through the brain. COMPARISON: [facility], CT, CT BRAIN W&WO CON, 11/24/2016, 17:00. FINDINGS: Image quality: Excellent. CSF Spaces: Basal cisterns are patent. No extra-axial fluid collections. Ventricles are normal in size and shape. Brain: No midline shift. No intracranial bleeds or masses. No abnormal intracranial enhancement. The brainstem appears normal. Diffusion-weighted images demonstrate no acute ischemic insults. No c hronic ischemic insults. Normal intravascular flow voids are present. Skull and face: Calvarial marrow is normal in signal. Orbits appear normal. Sinuses: Sinuses End mastoids appear clear. IMPRESSION: Normal brain MRI exam. The findings to explain dizziness. Dictated by: Larissa Kimbrough M.D. on 11/25/2016 at 10:36 Approved by: Larissa Kimbrough M.D. on 11/25/2016 at 10:39
[2016-11-25 10:45] VITALS: BP 111/71; PULSE 67; RESP 16; O2SAT 100
[2016-11-25 11:42] VITALS: PULSE 80
--- NOTE | 2016-11-25 13:06 | NUR ---
Social Work-discharge: Data:EMR Reviewed. Pt is day 2 of hospitalization for acute CVA per H&P. Pt is medically stable for discharge. Pt reside at home with her where she remains independent with ADLs. PT has cleared pt for home no needs. No anticipated discharge needs. Pt's family to provide transport home. All updated and agreeable to plan. Assessment:Pt who is independent at baseline. Plan:Pt to discharge home today via POV. No discharge needs identified. All updated and agreeable to plan. WEI Lee
--- NOTE | 2016-11-25 13:09 | PCM.DIMED ---
Discharge Instructions Date of Service Nov 25, 2016 Dates of Hospitalization Nov 23, 2016 at 22:06 Discharge Diagnosis Discharge Diagnosis Concussion Medication Instructions Increase vitamin C intake to 500-1000mg daily Start taking B complex daily increase protein intake Decrease caffeine intake no more than 8oz per day Complete brain rest no computer, no texting, no TV, no reading for at least a week. Then restart to slowly restart doing activities reading for 20min at a time. If no symptoms start then you may increase the amount of time reading and start with short walks around the block and then gradually increase your activity. If at any time you feel dizzy then you must stop what you're doing and rest. Test Results MRI negative Diet No restrictions, Other (Increase daily protein) Activity Other (gradually return to normal activites) Call your provider Shortness of breath, Chest pain, Weakness (unilateral), Other (dizziness or loss of conciousness) Patient Instructions You may do some light stretching especially of the neck muscles ( sternocleidomastoid) and trapezius muscles. Do not start any Yoga or pilates or other exercise classes until all of your symptoms have completely resolved. Follow-up Provider: CECILIO COLON Follow-up with PCP in: 1 week Provider: Felix Roy MD Follow-up in: 4 weeks Trinidad Goff DO Nov 25, 2016 13:09
[2016-11-25] MEDS ORDERED: ASCO-294 PO (13:14)
--- NOTE | 2016-11-25 13:30 | PCM.DC.MED ---
Discharge Summary Date of Service Nov 25, 2016 Dates of Hospitalization Date of Hospital Admission Nov 23, 2016 at 22:06 Date of Discharge: Nov 25, 2016 Providers: Admitting Physician: Cecilio Engel DO Primary Care Physician: Cecilio Adler Attending Physician: Cecilio Engel DO Diagnosis at Time of Discharge Diagnosis at Time of Discharge Concussion Procedures XRay, CTs & MRIs CT BRAIN (TPA) IMPRESSION: No acute intracranial abnormality. This study fulfills neurological imaging criteria for inclusion or exclusion of acute stroke therapies based on available published neurological imaging guidelines. Dictated by: Larissa Kimbrough M.D. on 11/23/2016 at 18:10 Approved by: Larissa Kimbrough M.D. on 11/23/2016 at 18:12 CT ANGIO HEAD AND NECK (P) IMPRESSION: Normal head and neck angiogram. Dictated by: Larissa Kimbrough M.D. on 11/23/2016 at 21:10 Approved by: Larissa Kimbrough M.D. on 11/23/2016 at 21:14 . PROCEDURE: MRI BRAIN WITH AND WITHOUT CONTRAST ([id number]) INDICATIONS: 36 year old woman with dizziness. History of recent concussion. TECHNIQUE: Noncontrast axial T1 spin echo, axial T2 fast spin echo, sagittal and axial FLAIR, coronal T2 fast spin echo, axial gradient echo, axial diffusion and ADC through the brain. After the administration of contrast, axial and coronal 3D VIBE or T1 spin echo with fat saturation through the brain. COMPARISON: [facility], CT, CT BRAIN W&WO CON, 11/24/2016, 17:00. FINDINGS: Image quality: Excellent. CSF Spaces: Basal cisterns are patent. No extra-axial fluid collections. Ventricles are normal in size and shape. Brain: No midline shift. No intracranial bleeds or masses. No abnormal intracranial enhancement. The brainstem appears normal. Diffusion-weighted images demonstrate no acute ischemic insults. No chronic ischemic insults. Normal intravascular flow voids are present. Skull and face: Calvarial marrow is normal in signal. Orbits appear normal. Sinuses: Sinuses End mastoids appear clear. IMPRESSION: Normal brain MRI exam. The findings to explain dizziness. Dictated by: Larissa Kimbrough M.D. on 11/25/2016 at 10:36 Approved by: Larissa Kimbrough M.D. on 11/25/2016 at 10:39 ECG 12 Lead EKG: Sinus rhythm, heart rate 63, normal axis, normal intervals, normal R-wave progression, no pathological Q waves or acute ischemic changes such as ST elevation or depression. . Cardiac Echo Impression Echocardiogram Report Name: NYDIA MCCONNELL CStudy Date : 11/24/2016 Height: 65 in Hospital Exam Location: [facility] Weight: 166 lb Gender: Female BSA: 1.8 m2 : 1980 Age: 36 yrs BP: 93/58 mmHg Reason For Study: CVA Ordering Physician: HOSPITALIST EHSANerformed By: Wilma Rodgers Referring Physician: LIBERTAD Stewart Interpretation Summary The left ventricle is normal in size, wall thickness, and systolic function without any focal wall motion abnormalities. The ejection fraction is estimated to be 55-60%. There is no LV thrombus. The right ventricle is normal in size and function. The interatrial septum is intact with no evidence for an atrial septal defect. Injection of contrast documented no interatrial shunt. No significant valvular pathology seen. Brief History Nydia Mcconnell is a 36-year-old female who presents to [facility] Emergency Department with concerns slurred speech that started around 13:40 this afternoon. She reports that she hit her head approximately 7 days ago on a bathroom cabinet while going to the bathroom. She was then diagnosed with mild concussion at her PCPs office. Since she hit her head she has had persistent left-sided headache, starting in the frontal region and radiating in a Danay horn distribution. She reports mild headaches approximately 6-8 times a day. She has no history of chronic headaches. She reports that she had had as a child but did not have concussive-like symptoms. She also endorses confusion , memory loss, and issues with recalling information. She occasionally has right-sided headaches as well. She reports that today she awoke with a headache and dizziness. She did some computer work, watched TV, and showered then decided to take a nap as her headache and dizziness was unremitting. She reports that when she awoke she suddenly had issues with speaking. She reports her words were slurred and she was having difficulty with word finding. She describes this as knowing what she wants to say but not knowing how to articulate it. Per the ED physician's report, her friend reports that her speech is not currently at her baseline. She denies diplopia or blurred vision , nasal congestion, sore throat, chest pain, shortness of breath, vomiting, fever, chills, dysuria, diarrhea, constipation, or weakness. However, she does report that she has to concentrate to walk at times. Vital signs in the ER: Temperature 36.8. Pulse 87. Respiratory rate 17. Blood pressure 116/83. Pulse ox 100% on room air. She was given aspirin 81 mg and acetaminophen 1 g IV 1. PCP is Cecilio MAURER . Hospital Course Patient was seen and examined and found to have a concussion The patient presented to the ER with slurred speech and dizziness. Upon exam the patient had uncoordinated extraocular eye muscles and unable to track properly. Neurology was consulted and agreed that the patient was suffering from a concussion as opposed to a TIA. The patient was placed on complete brain rest and her slurred speech and dizziness started to improve. The patient had a CT scan of the brain and an MRI which were all negative. Patient's lipid panel and Echo were both normal. That patient has been instructed to go home and rest no TV, texting, computer, or reading. Patient has also been told to decrease her caffeine intake, start taking vitamin c 500g-1000mg per day along with B complex and increasing her protein intake as this has been associated in decrease in concussion symptoms. The patient should follow up with her PCP in [address] Roy ( Neurology) in 4 weeks. The patient is being discharged home in stable condition. Exam Vital Signs (Last) Date Time Temp Pulse Resp B/P Pulse Ox O2 Delivery O2 Flow Rate FiO2 11/25/16 11:42 80 11/25/16 10:45 36.4 16 111/71 100 Room Air Exam GEN: Patient was awake, alert, responding appropriately to questions HEENT: PERRLA, Neck soft supple, trachea midline, nomocephalic/atraumatic, eyes were not able to track during extraocular eye muscle exam. Patient had blurry vision and was unable to tell me the appropriate number of fingers and toes holding up in the left lower lateral position. Upon exam the patient's eyes could track to the left and right but once they started moving in the H pattern the eyes immediately crossed or rolled posteriorly. CV: +S1/S2, RRR, no murmurs auscultated Respiratory: CTAB, no wheezes, rales, rhonchi GI: +bowel sounds x4, soft, compressible, non TTP EXT: no c/c/e Neuro: CN II-XII grossly intact Psych: mood and affect were appropriate Test 11/23/16 18:03 11/23/16 18:26 11/23/16 19:20 11/23/16 19:25 Troponin T < 0.010ug/L (0.0-0.011) Human Chorionic Gonadotropin, Qual Negative (Negative) Prothrombin Time 12.0sec (8.1-12.5) Prothromb Time International Ratio 1.12ratio Activated Partial Thromboplast Time 28.5sec (22.8-33.0) Hold Williamson Top Tube Received (Received) Alcohol, Quantitative < 10mg/dL (0-10) Urine Opiates Screen Negative Urine Methadone Screen Negative Urine Barbiturates Screen Negative Urine Amphetamines Screen Negative Urine Benzodiazepines Screen Negative Urine Cocaine Metabolite Screen Negative Urine Cannabinoids Screen Negative Urine Color Yellow (YELLOW) Urine Appearance Clear (CLEAR,HAZY) Urine pH 7.5 (5.0-8.0) Urine Specific [place] 1.010 (1.003-1.035) Urine Protein Negativemg/dL (NEG,TRACE) Urine Glucose (UA) Negativemg/dL (NEGATIVE) Urine Ketones Negativemg/dL (NEGATIVE) Urine Occult Blood Negative (NEGATIVE) Urine Nitrite Negative (NEGATIVE) Urine Bilirubin Negative (NEGATIVE) Urine Urobilinogen Normalmg/dL (NORMAL) Urine Leukocyte Esterase Small (NEGATIVE) Urine RBC 0-2/hpf (0-2) Urine WBC 0-5/hpf (0-5) Urine Epithelial Cells Moderate/hpf (NONE-MOD) Urine Crystals None seen (NONE SEEN) Urine Bacteria Many/hpf (NONE-FEW) Urine Hyaline Casts None/lpf (NONE) Urine Granular Casts None seen (NONE SEEN) Urine Waxy Casts None seen (NONE SEEN) Urine Red Blood Cell Casts None seen (NONE SEEN) Urine White Blood Cell Casts None seen (NONE SEEN) Urine Mucus None seen (None Seen) Urine Trichomonas None seen (NONE SEEN) Urine Yeast None (NONE SEEN) Urinalysis Comment None Urine Culture Reflexed Indicated Test 11/24/16 06:55 11/25/16 09:25 Neutrophils (%) (Auto) 55.1% (40-74) Lymphocytes (%) (Auto) 34.5% (14-46) Monocytes (%) (Auto) 7.8% (4-12) Eosinophils (%) (Auto) 1.8% (0-5) Basophils (%) (Auto) 0.4% (0-3) Iron Level 36ug/dL (35-150) Total Iron Binding Capacity 398ug/dL (250-450) Percent Iron Saturation 9%sat (15-50) Unsaturated Iron Binding 361.9ug/dL Triglycerides Level 53mg/dL (0-149) Cholesterol Level 158mg/dL (100-199) LDL Cholesterol, Calculated 89.400mg/dL (0-99) VLDL Cholesterol 10.600mg/dL HDL Cholesterol 58mg/dL (>39) Cholesterol/HDL Ratio 2.72 (0.0-4.4) White Blood Count 3.9th/mm3 (3.8-10.1) Red Blood Count 4.88mil/mm3 (3.90-5.20) Hemoglobin 11.5g/dL (12.0-15.6) Hematocrit 37.8% (35.0-46.0) Mean Corpuscular Volume 77.5fL (81-100) Mean Corpuscular Hemoglobin 23.6pg (27.0-35.0) Mean Corpuscular Hemoglobin Concent 30.4% (32.0-37.0) Red Cell Distribution Width 15.8% (12.3-15.4) Platelet Count 256bil/L (150-400) Sodium Level 139mEq/L (134-144) Potassium Level 4.1mEq/L (3.5-5.2) Chloride Level 103mEq/L (97-108) Carbon Dioxide Level 19mmol/L (18-29) Blood Urea Nitrogen 14mg/dL (6-20) Creatinine 0.86mg/dL (0.57-1.00) Estimat Glomerular Filtration Rate 108mL/min (>59) Glucose Level 101mg/dL (60-99) Calcium Level 9.5mg/dL (8.5-10.1) Total Bilirubin 0.3mg/dL (0.0-1.2) Aspartate Amino Transf (AST/SGOT) 17U/L (0-50) Alanine Aminotransferase (ALT/SGPT) 10U/L (0-32) Alkaline Phosphatase 85U/L (25-150) Total Protein 6.8g/dL (6.4-8.4) Albumin 4.4g/dL (3.4-5.0) Microbiology Results Urine culture pending. . Discharge Medications Discharge Medications Ascorbate Calcium (Vitamin C) 500 Mg Tablet 1,000 MG PO DAILY Prescribed by: KELLNE LADD DO Loratadine (Claritin) 10 Mg Capsule 10 MG PO DAILY (Reported) Omeprazole (Omeprazole) 10 Mg Capsule.dr 10 MG PO BID (Reported) Miscellaneous Medications ([doterra]) (Reported) Additional med instructions Increase vitamin C intake to 500-1000mg daily Start taking B complex daily increase protein intake Decrease caffeine intake no more than 8oz per day Complete brain rest no computer, no texting, no TV, no reading for at least a week. Then restart to slowly restart doing activities reading for 20min at a time. If no symptoms start then you may increase the amount of time reading and start with short walks around the block and then gradually increase your activity. If at any time you feel dizzy then you must stop what you're doing and rest. Followup Plan Disposition: stable condition to home Discharge Diet: No restrictions, Other (Increase daily protein) Discharge Activity: Other (gradually return to normal activites) Patient Instructions You may do some light stretching especially of the neck muscles ( sternocleidomastoid) and trapezius muscles. Do not start any Yoga or pilates or other exercise classes until all of your symptoms have completely resolved. Follow-up Provider: CECILIO ADLER Follow-up with PCP in: 1 week Provider: Felix Roy MD Follow-up in: 4 weeks Time spent Greater than 35min copies to: CECILIO ADLER Precious L DO Nov 25, 2016 13:30
--- NOTE | 2016-11-25 14:54 | NUR ---
Discharge Patient discharge to home with all belongings. Explained to patient new medication (Vitamin C), when next medications are due, and discharge instructions. Patient verbalized understanding. Dc'd IV intact. Dc'd telemetry. Vitals stable. Patient left floor via wheelchair accompanied by and TARIFF COUNSEL with no signs of distress.
== END 2016-11-25 14:12 | disposition home or self-care (01) | DRG 90 ==
LOC: SED 17:45 → MPC 22:06
PROVIDERS: ADMIT Internal Medicine; ATTEND Internal Medicine
DX: S06.0X0A Concussion without loss of consciousness, initial encounter (principal); R47.1 Dysarthria and anarthria; F41.9 Anxiety disorder, unspecified; K21.9 Gastro-esophageal reflux disease without esophagitis; D64.9 Anemia, unspecified; W22.09XA Striking against other stationary object, initial encounter; Y92.002 Bathroom of unspecified non-institutional (private) residence as the place of occurrence of the external cause; Z79.82 Long term (current) use of aspirin